=== PATIENT | male | born 1955 | race African-American/Black ===

== ENCOUNTER 2023-03-26 13:07 | Emergency (ER) | payer BC | END 2023-03-26 16:06 | disposition home or self-care (01) | LOC: MW.ED 13:07 | DX: H66.43 Suppurative otitis media, unspecified, bilateral (principal); J00 Acute nasopharyngitis [common cold]; I10 Essential (primary) hypertension; Z20.822 Contact with and (suspected) exposure to COVID-19 | CPT/HCPCS: 87651-QW; 99283; 99284; U0002 ==